=== PATIENT | female | born 1955 | race Hispanic/Latino ===

== ENCOUNTER 2016-09-15 12:39 | Outpatient (CLI) | payer OTHER ==
--- NOTE | 2016-09-19 08:46 | Ultrasound Report ---
DIAGNOSTIC LEFT MAMMOGRAM AND TARGETED LEFT BREAST ULTRASOUND: HISTORY: Recall for left asymmetry. FINDINGS: On the spot compression image in the CC projection and on the 90 degree view, no evidence of residual nodule or mass is seen. Otherwise, the breast parenchyma is unremarkable. There are no suspicious calcifications. Ultrasound of the lateral half of the left breast was performed. No evidence of a cystic or solid mass is seen. IMPRESSION: No suspicious findings. BI-RADS CATEGORY: 2 = Benign ACR BI-RADS MAMMOGRAPHIC CODES: 0 = Needs additional imaging evaluation; 1 = Negative; 2 = Benign; 3 = Probably benign; 4 = Suspicious; 5 = Malignant; 6 = Known biopsy-proven malignancy COMMENT: 1. Dense breast tissue, i.e., adenosis, fibrocystic changes, etc., may obscure an underlying neoplasm. 2. Approximately 10% of cancers are not detected with mammography. 3. A negative mammography report should not delay biopsy if a clinically suspicious mass is present. RECOMMENDATION: Annual screening.
== END 2016-09-15 12:40 | disposition home or self-care (01) ==
LOC: MAMMO 12:39
PROVIDERS: ATTEND Obstetrics & Gynecology
DX: R92.2 Inconclusive mammogram (principal)
CPT/HCPCS: 76641; G0206